=== PATIENT | female | born 1995 | race Caucasian/White ===

== ENCOUNTER 2019-08-31 15:30 | Outpatient (CLI) | payer OTHER ==
--- NOTE | 2019-08-31 16:44 | MRI ---
EXAM: Left knee MRI without contrast: HISTORY: Left knee pain since running COMPARISON: None FINDINGS: Multiplanar, multisequence MRI examination of the knees performed. No evidence for significant joint effusion. There is some heterogeneity of signal within the patellar articular cartilage particularly medially. Minimal focal abnormal marrow signal involving the medial patella. Medial meniscus: Minimal globular intrasubstance meniscal signal of the capsular meniscal junction re gion of the posterior horn without definite extension to the free edge. Lateral meniscus: Minimal free edge blunting of the posterior root of the lateral meniscus. Anterior cruciate ligament:Intact. Posterior cruciate ligament: Intact. Medial collateral ligament complex: Intact. Lateral collateral ligament complex: Intact. Quadriceps and patellar tendons: Intact. Extensor mechanism: Unremarkable. Minimal fat stranding in the superior lateral aspect of Hoffa's fat, a finding that can be seen in pa tellar tendon lateral femoral condyle friction syndrome. Given the signal alteration in the medial patella facet cartilage and the medial patella possibility of a mild lateral patellar subluxation/dislocation/relocation event is a consideration. IMPRESSION: Possible lateral patellar subluxation/mild dislocation/relocation event as above. Intact MPFL. Minima l globular intrasubstance signal at the capsular meniscal junction region of the posterior horn and posterior body medial meniscus. Minimal blunting of the free edge of the lateral meniscus at the posterior root. Fat stranding in the superior lateral aspect of Hoffa's fat, a finding that can be seen in association with patellar tendon lateral femoral condyle friction syndrome
== END 2019-08-31 15:31 | disposition home or self-care (01) ==
LOC: SCSMRI 15:30
PROVIDERS: ATTEND Orthopaedic Surgery
DX: M25.562 Pain in left knee (principal)